=== PATIENT | male | born 1975 | race Two or more races ===

== ENCOUNTER 2018-07-04 11:41 | Emergency (ER) | payer OTHER ==
[~2018-07-04] VITALS: Ht 167.6 cm; Wt 96.2 kg
[2018-07-04] MEDS ORDERED: NKM (11:48)
[2018-07-04] MEDS ORDERED: Ketorolac 30mg Inj IM ONE (12:00)
--- NOTE | 2018-07-04 12:03 | Emergency Room Report ---
History of Present Illness General Chief Complaint: Lower Extremity Injury Source: Patient Present Illness HPI 42-year-old male patient presents the ER complaining of right ankle and knee pain status post mechanical trip and fall while at work earlier today. Patient reports that he slipped and fell due to the rain in the floor being slippery. Denies hitting his head or loss consciousness. Reports he twisted his right ankle, unsure of mechanism of injury. He fell onto his right knee. Reports pain with ambulation. Denies taking medication for relief of symptoms. Denies other aggravating or relieving factors. Allergies: Coded Allergies: No Known Allergies (Unverified , 07/08/14) Patient History Past Medical History: see triage record Reviewed Nursing Documentation: PMH: Agreed; PSxH: Agreed Nursing Documentation-PMH Past Medical History: No Stated History Review of Systems All Other Systems: negative except mentioned in HPI Physical Exam Vital Signs Date Time Temp Pulse Resp B/P (MAP) Pulse Ox O2 Delivery O2 Flow Rate FiO2 07/04/18 11:44 98.1 83 23 112/75 95 Room Air Sp02 EP Interpretation: reviewed, normal General Appearance: well appearing, no apparent distress, alert, GCS 15, non- toxic Head: normocephalic, atraumatic Eyes: bilateral eye normal inspection, bilateral eye PERRL ENT: hearing grossly normal, normal pharynx, no angioedema, normal voice, uvula midline, moist mucus membranes Neck: full range of motion Respiratory: lungs clear, normal breath sounds, no rhonchi, no respiratory distress, no accessory muscle use, no wheezing, speaking full sentences Cardiovascular #1: regular rate, rhythm, no edema Cardiovascular #2: 2+ dorsalis pedis (R), 2+ dorsalis pedis (L) Musculoskeletal: back normal, digits/nails normal, gait/station normal, normal range of motion, other - No tenderness palpation over base of fifth metatarsal, negative syndesmotic squeeze test, cap refill less than 2 seconds, no ecchymosis , no bruising,NVI, negative anterior and posterior drawer test, no laxity with varus or valgus stress on right knee, no deformity, no patella deformity, tender - Bilateral malleoli of right ankle, anterior right knee Neurologic: alert, oriented x3, responsive, motor strength/tone normal, sensory intact Psychiatric: mood/affect normal Skin: no rash Medical Decision Making PA Attestation Dr. Ring is my supervising Physician whom patient management has been discussed with. Diagnostic Impression: Primary Impression: Ankle sprain Additional Impression: Knee contusion ER Course Pt. presents to the ED c/o of right ankle and right knee status post mechanical trip and fall. Ddx considered but are not limited to fracture, sprain, strain, contusion, dislocation. No erythema, no warmth to touch, no fever, nontoxic appearing, low suspicion for septic joint. Soft compartments, no pulselessness, no pallor, no paresthesias, low suspicion for compartment syndrome at this time. Vital signs: are WNL, pt. is afebrile Ordered X-ray and pain medication. ER COURSE Provided with Toradol, denies history of diabetes. An X-ray of the right ankle shows no acute disease per the preliminary reading. Likely ankle sprain. An X-ray of the right knee shows no acute disease per the preliminary reading. Likely knee contusion. MARIXA wrap was applied to the right ankle and was checked afterwards by me showing good alignment and support with distal neurovascular functioning intact. Crutches provided. Patient instructed on RICE method: rest, ice, compression, elevation. Patient instructed on rest, ice and heat. Patient instructed to be WBAT Workmen's Compensation paperwork completed Contact information for orthopedic urgent care provided, follow-up with urgent care if unable to followup with primary care provider and get referral to store specialist. Followup with primary care provider. Discuss referral to ortho/pain management/ PT as needed. Discuss further imaging with MRI/CT as needed. Follow-up with Workmen's Compensation physician for clearance to return to normal work. DISCHARGE: -Rx provided for Ibuprofen for pain symptoms. At this time pt. is stable for d/c to home. Patient is resting comfortably, in no acute distress, nontoxic appearing, talking without difficulty. Will provide printed patient care instructions, and any necessary prescriptions. Patient instructed to follow with primary care provider in 3 - 5 days and to request further follow-up as needed. Care plan and follow up instructions have been discussed with the patient prior to discharge. Take medications as directed. Patient questions asked and answered. Patient reports understanding and agreement to treatment plan. ER precautions given, patient instructed to return to ER immediately for any new or worsening of symptoms. - Please note that this Emergency Department Report was dictated using Dragon radio communications superintendent technology software, occasionally this can lead to erroneous entry secondary to interpretation by the dictation equipment. Other X-Ray Diagnostic Results Other X-Ray Diagnostic Results #1: X-Ray ordered: right ankle # of Views/Limited Vs Complete: 3 View Indication: Pain EP Interpretation: Yes PA Xray: Interpretation reviewed, by supervising MD, and agrees with findings. Interpretation: no dislocation, no soft tissue swelling, no fractures Impression: No acute disease BERTRAND ScribAlonzo Dobson PA-C Other X-Ray Diagnostic Results #2: X-Ray ordered: right knee # of Views/Limited Vs Complete: 3 View Indication: Pain EP Interpretation: Yes PA Xray: Interpretation reviewed, by supervising MD, and agrees with findings. Interpretation: no dislocation, no soft tissue swelling, no fractures Impression: No acute disease BERTRAND QuirosibAlonzo Dobson PA-C Last Vital Signs Date Time Temp Pulse Resp B/P (MAP) Pulse Ox O2 Delivery O2 Flow Rate FiO2 07/04/18 11:44 98.1 83 23 112/75 95 Room Air Status: improved Disposition: HOME, SELF-CARE Condition: Stable Scripts Ibuprofen* (MOTRIN*) 600 Mg Tablet 600 MG ORAL Q8H PRN for For Pain, #30 TAB 0 Refills Prov: Jn Dobson 07/04/18 Patient Instructions: Ankle Sprain, Knee Pain, [id number] Additional Instructions: Patient instructed to follow up with primary care provider and discuss further referral to orthopedics/physical therapy/pain management as needed. If unable to followup with PCP, followup with orthopedic urgent care in 5-7 days , call to schedule appointment. Patient instructed on RICE method: rest, ice, compression, elevation. Patient instructed to WBAT. Take medications as directed. Patient questions asked and answered. ER precautions given, patient instructed to return to ER immediately for any new or worsening of symptoms. [facility] [address] [facility], [address] [email or web address] Jn Dobson Jul 04, 2018 12:03
--- NOTE | 2018-07-04 12:22 | NUR ---
ED Nurse Note:pt. twisted his right ankle at work, no deformities noted, skin is intact, pain meds given
[2018-07-04] MEDS ORDERED: IBUPROFEN600 MG ORAL (13:10)
[2018-07-04 13:34] VITALS: BP 116/78
--- NOTE | 2018-07-04 13:36 | NUR ---
ED Nurse Note:pt. was provided with cratchies and training pt. was cleared for d/c by ER MD ,he received d/c instructions with prescriptions, verbalized understanding and left ER with steady gait and all personal belongings, ID bend removed
--- NOTE | 2018-07-05 12:40 | Diagnostic Imaging Report ---
Indication: Pain Knee pain/trauma 3 views of the right knee were obtained. Findings: No acute fracture, malalignment, or joint effusion are identified. Joint space is relatively well-maintained. Impression: Negative for acute findings.
--- NOTE | 2018-07-05 12:42 | Diagnostic Imaging Report ---
Indication: Pain right ankle ankle pain/trauma Comparison: None Findings: 3 views of the right ankle obtained. No acute fracture, malalignment, periostitis, or osteochondral defects are identified. Soft tissues are unremarkable. Impression: Negative examination
== END 2018-07-04 13:36 | disposition home or self-care (01) ==
LOC: EMR 12:37
DX: S93.401A Sprain of unspecified ligament of right ankle, initial encounter (principal); S80.01XA Contusion of right knee, initial encounter; W01.0XXA Fall on same level from slipping, tripping and stumbling without subsequent striking against object, initial encounter; Y92.69 Other specified industrial and construction area as the place of occurrence of the external cause
CPT/HCPCS: 73562; 73610; 96372; 99284; J1885